=== PATIENT | female | born 1925 | race Caucasian/White ===

== ENCOUNTER → 2016-04-18 | Outpatient (CLI) | payer OTHER, MEDICARE ==
--- NOTE | 2016-04-18 10:40 | DX ---
Right Hip, Two Views 10:01 a.m. Clinical History: 89-year-old female who had an ORIF for a right femoral intertrochanteric fracture o n December 03, 2015, presenting for follow up. Comparison Study: Right femur, dated March 19, 2016. Findings: The patient has undergone a prior ORIF for a right femoral intertrochanteric fracture. The alignment is anatomic. There is no periprosthetic lucency associated with the right femoral compressi on screw or the intramedullary vicky and interlocking screw. Each femoral head is well-seated within it s respective acetabulum. There are some surgical clips noted at and above the proximal right femur. T he bones are mildly demineralized. The ischial pubic rami are intact. Impression: Stable alignment of orthopedic hardware following ORIF for a right femoral intertrochante sharath fracture.
== END ==
LOC: BMCIMAGING 09:50
PROVIDERS: ATTEND Physician Assistant
DX: S72.101D Unspecified trochanteric fracture of right femur, subsequent encounter for closed fracture with routine healing (principal)

== ENCOUNTER → 2016-06-13 | Outpatient (CLI) | payer OTHER, MEDICARE | LOC: BMCIMAGING 09:57 | PROVIDERS: ATTEND Family Medicine | DX: Z47.89 Encounter for other orthopedic aftercare (principal) ==